=== PATIENT | female | born 1955 | race Caucasian/White ===

== ENCOUNTER 2018-09-11 05:20 | Day surgery (SDC) | payer OTHER ==
[~2018-09-11] VITALS: Ht 154.9 cm; Wt 61.2 kg
[2018-09-11] MEDS ORDERED: HYDR12.585 PO (06:42)
[2018-09-11] MEDS ORDERED: LOSA25TA3 PO (06:42)
[2018-09-11] MEDS ORDERED: PRAV20TA PO (06:42)
[2018-09-11] MEDS ORDERED: CEFAZOLIN SOD 2 GM in D5W 50 ML IV ONE (07:00)
[2018-09-11] MEDS ORDERED: GLYCOPYRROLATE 0.2 MG/ML VIAL IJ ONE (07:30)
[2018-09-11] MEDS ORDERED: NEOSTIGMINE METHYLSULFATE 1 MG/ML, 10 ML VIAL IVP ONE (07:30)
[2018-09-11] MEDS ORDERED: ROCURONIUM BROMIDE 10 MG/ML (ZEMURON) IV ONE (07:30)
[2018-09-11] MEDS ORDERED: DEXAMETHASONE SOD PHOSPHATE 4 MG/ML VIAL IVP ONE (07:30)
[2018-09-11] MEDS ORDERED: SEVOFLURANE 15 MIN GAS INH ONE (07:30)
[2018-09-11] MEDS ORDERED: MIDAZOLAM HCL 5 MG/5 ML VIAL IVP ONE (07:30)
[2018-09-11] MEDS ORDERED: NS IRRIG SOLN 1000 ML IR ONE (07:30)
[2018-09-11] MEDS ORDERED: PROPOFOL 200MG/ 20ML VIAL (DIPRIVAN) IV ONE (07:30)
[2018-09-11] MEDS ORDERED: LR 1,000 ML IV.SOLN IV ONE (07:30)
[2018-09-11] MEDS ORDERED: fentaNYL CITRATE/PF 100 MCG/2 ML AMP IVP ONE (07:30)
[2018-09-11] MEDS ORDERED: ONDANSETRON HCL 4 MG/2 ML VIAL IVP PRN ×2 (12:15→14:30)
[2018-09-11] MEDS ORDERED: fentaNYL CITRATE/PF 100 MCG/2 ML AMP IVP PRN ×2 (12:15)
[2018-09-11] MEDS ORDERED: fentaNYL CITRATE/PF 100 MCG/2 ML AMP ONE (12:42)
[2018-09-11] MEDS ORDERED: ONDANSETRON 4 MG ODT TAB PO PRN (14:30)
[2018-09-11 15:23] VITALS: BP_SYST 119
[2018-09-11] MEDS: KCL 20 mEq in D5/0.45NS 1000mL 1,000 ML IV SCH (15:53)
[2018-09-11] MEDS: HYDROcodone/ACETAMIN 5-325 MG TAB (NORCO/ VICODIN) PO PRN ×2 (16:04→20:23)
[2018-09-11 20:00] VITALS: BP_SYST 113
[2018-09-11] MEDS: CALCIUM 500 MG/TAB PO SCH (20:23)
[2018-09-11 21:33] LABS: ALBUMIN 3.2 g/dL (3.4-4.8); CALCIUM 8.6 mg/dL (8.4-11.0)
[2018-09-11 23:45] VITALS: BP_SYST 103
[2018-09-12] MEDS: KCL 20 mEq in D5/0.45NS 1000mL 1,000 ML IV SCH ×2 (01:57→10:34)
[2018-09-12 06:48] LABS: ALBUMIN 2.8 g/dL (3.4-4.8); CALCIUM 8.4 mg/dL (8.4-11.0)
[2018-09-12] MEDS ORDERED: LEVOTHYROXINE SODIUM 0.1 MG TABLET PO SCH (07:00)
[2018-09-12 08:10] VITALS: BP_SYST 111
[2018-09-12] MEDS: CALCIUM 500 MG/TAB PO SCH ×2 (09:07→14:34)
[2018-09-12] MEDS ORDERED: HYDROCHLOROTHIAZIDE 12.5 MG CAPSULE (HCTZ) PO ONE (09:30)
[2018-09-12] MEDS ORDERED: LOSARTAN POTASSIUM 25 MG TABLET PO ONE (09:30)
[2018-09-12] MEDS ORDERED: ATORVASTATIN 10 MG TABLET PO ONE (09:45)
[2018-09-12 11:14] LABS: ALBUMIN 2.9 g/dL (3.4-4.8); CALCIUM 8.6 mg/dL (8.4-11.0)
[2018-09-12 12:15] VITALS: BP_SYST 134
[2018-09-12] MEDS: HYDROcodone/ACETAMIN 5-325 MG TAB (NORCO/ VICODIN) PO PRN (14:35)
[2018-09-12] MEDS ORDERED: LEVO100T9 PO (14:56)
[2018-09-12] MEDS ORDERED: CALCIUM CARBONATE PO (14:58)
[2018-09-12] MEDS ORDERED: HYDR-4272 PO (14:59)
[2018-09-12 15:03] VITALS: BP_SYST 134
[2018-09-13] MEDS ORDERED: LOSARTAN POTASSIUM 25 MG TABLET PO SCH (09:00)
[2018-09-13] MEDS ORDERED: ATORVASTATIN 10 MG TABLET PO SCH (09:00)
[2018-09-13] MEDS ORDERED: HYDROCHLOROTHIAZIDE 12.5 MG CAPSULE (HCTZ) PO SCH (09:00)
== END 2018-09-12 15:45 | disposition home or self-care (01) ==
LOC: SMU 05:20 → SDS 05:20 → EDSTATUS 07:30 → SMU 15:42 → SDS 09-12 15:45
PROVIDERS: ATTEND Otolaryngology
DX: E04.2 Nontoxic multinodular goiter (principal); I10 Essential (primary) hypertension; Z98.890 Other specified postprocedural states; Z79.899 Other long term (current) drug therapy; E78.5 Hyperlipidemia, unspecified; E66.9 Obesity, unspecified; R00.0 Tachycardia, unspecified
CPT/HCPCS: 36415; 60240; 82040; 82310; 83970; 87081 ×2; 88307; C1782; J0690; J1100; J2250; J2704; J2710; J3010; J3490; J7060; J7120

== ENCOUNTER 2019-01-15 20:41 | Emergency (ER) | payer OTHER ==
[~2019-01-15] VITALS: Ht 154.9 cm; Wt 77.1 kg
[~2019-01-15 20:41] MED LIST: CALCIUM CARBONATE PO; HYDR-4272 PO; HYDR12.585 PO; LEVO100T9 PO; LOSA25TA3 PO; PRAV20TA PO
--- NOTE | 2019-01-15 20:48 | NUR ---
Placed in room 6. Placed on narcotics and vice detective, blood pressure machine and pulse oximeter. To gown for exam. Side rails up.
[2019-01-15 20:49] VITALS: BP_SYST 154
--- NOTE | 2019-01-15 20:50 | NUR ---
Pt C/O shortness of breath since today and bilateral foot pain x 2 week. Pt was seen by PCP and a follow up appointment was made to rule out DVT. Pain has been getting progressively worse and with new onset shortness of breath patient wanted to be evaluated in ED. Son states patient has been seen clutching her chest but denies chest pain. Pt denies any N/V/D, fever, or any other symptoms at this time. Will continue to monitor.
--- NOTE | 2019-01-15 21:35 | NUR ---
# 20 gauge angiocath placed to LT AC. Use of asceptic technique. Opsite placed over site. Blood return noted. Blood for lab drawn from site. Flushed with 10 cc of normal saline. No evidence of infiltration noted. Patient tolerated well.
[2019-01-15 21:57] LABS: BASOPHILS % (AUTO) 0.4 % (0.0-2.0); EOSINOPHILS # (AUTO) 0.5 K/uL (0.0-0.4); EOSINOPHILS % (AUTO) 11.1 % (0.0-4.0); HEMATOCRIT 35.4 % (36-48); HEMOGLOBIN 11.9 g/dL (12.0-16.0); LYMPHOCYTES # (AUTO) 1.1 K/uL (1.0-5.5); LYMPHOCYTES % (AUTO) 22.3 % (20.5-51.5); MEAN CORPUSCULAR HEMOGLOBIN 28 pg (27-31); MEAN CORPUSCULAR HGB CONC 34 % (32-36); MEAN CORPUSCULAR VOLUME 84 fL (79.0-98.0); MONOCYTES # (AUTO) 0.7 K/uL (0.0-1.0); MONOCYTES % (AUTO) 14.1 % (1.7-9.3); NEUTROPHILS # (AUTO) 2.5 K/uL (1.8-7.7); NEUTROPHILS % (AUTO) 52.1 % (40.0-70.0); PLATELET COUNT (AUTO) 186 K/uL (130-430); RED BLOOD CELL COUNT(AUTO) 4.21 MIL/uL (4.2-6.2); RED CELL DISTRIBUTION WIDTH 13.3 % (9.0-15.0); WHITE BLOOD COUNT (AUTO) 4.8 K/uL (4.8-10.8)
[2019-01-15 22:07] LABS: ALANINE AMINOTRANSFERASE 36 U/L (12-78); ALBUMIN 3.4 g/dL (3.4-4.8); ASPARTATE AMINOTRANSFERASE 26 U/L (10-37); CALCIUM 9.3 mg/dL (8.4-11.0); CHLORIDE 106 mmol/L (98-107); CREATININE 0.73 mg/dL (0.55-1.30); GLUCOSE 128 mg/dL (70-99); POTASSIUM 3.4 mmol/L (3.5-5.1); SODIUM SERUM 142 mmol/L (136-145); TOTAL BILIRUBIN 0.3 mg/dL (0.0-1.0); UREA NITROGEN, BLOOD 15 mg/dL (8-21)
[2019-01-15 22:11] LABS: ANION GAP 6 (5-15); GFR AFRICAN AMERICAN 104 mL/min (>90)
--- NOTE | 2019-01-15 22:35 | NUR ---
Patient transported to radiology via wheelchair, accompanied by rad staff.
[2019-01-15 22:39] LABS: CKMB RELATIVE INDEX 1.1 (0.0-2.9); CREATINE KINASE MB 3.6 ng/mL (0-3.6)
--- NOTE | 2019-01-15 22:53 | NUR ---
Pt returned in stable condition. Will continue to monitor.
[2019-01-15 23:55] VITALS: BP_SYST 124
--- NOTE | 2019-01-15 23:55 | NUR ---
Patient given written and verbal discharge instructions and verbalizes understanding. ER MD discussed with patient the results and treatment provided. Patient in stable condition. ID arm band removed. IV catheter removed intact and dressing applied, no active bleeding. Patient educated on pain management and to follow up with PMD. Pain Scale 0. Opportunity for questions provided and answered. Medication side effect fact sheet provided.
== END 2019-01-15 23:55 | disposition home or self-care (01) ==
LOC: SED 20:41
DX: G62.9 Polyneuropathy, unspecified (principal); F41.9 Anxiety disorder, unspecified; E03.9 Hypothyroidism, unspecified; I10 Essential (primary) hypertension; E78.00 Pure hypercholesterolemia, unspecified; Z79.899 Other long term (current) drug therapy
CPT/HCPCS: 36415; 71045; 80053; 82550-TC; 82553-TC; 84484; 85025; 85379; 93005; 93970; 99284